=== PATIENT | male | born 1955 | race Caucasian/White ===

== ENCOUNTER 2021-12-25 07:53 | Outpatient (CLI) | payer MEDICARE, BC, SELFPAY ==
--- OUTSIDE RECORDS SUMMARY | 2021-12-25 07:59 | XMS_ITS | Clinical Summary ---
:1955 Author Organization [facility] [place] [address] Care Team Providers Name Role Phone Jeronimo Mason MD Primary Care Provider Allergies Active Allergy Reactions Severity Noted Date Comments Cat Dander Other - Describe In Comment Field High 019 Sneezing Medications Medication Sig Dispensed Refills Start Date End Date Status gabapentin Take 100 mg by mouth 0 Active (NEURONTIN) 100 mg at bedtime if needed capsule (sleep). diphenhydrAMINE-acet Take 1 Tablet by 0 Active aminophen 25-500 mg mouth at bedtime if (Tylenol PM Extra needed (sleep). Max Strength) 25-500 mg acetaminophen dose: tablet 4000mg in 24 hrs. acetaminophen Take 2 Tablets (650 50 Tablet 0 02/27/2021 Active (TYLENOL) 325 mg mg) by mouth every 6 tabletIndications: hours if needed Lumbar stenosis with (pain). Max neurogenic acetaminophen dose: claudication 4000mg in 24 hrs. oxyCODONE Take 1 Tablet (5 mg) 35 Tablet 0 02/27/2021 Active (ROXICODONE) 5 mg by mouth every 4 immediate release hours if needed for tabletIndications: Pain (pain). Lumbar stenosis with neurogenic claudication methocarbamoL Take 1 Tablet (750 30 Tablet 0 02/27/2021 Active (ROBAXIN) 750 mg mg) by mouth 3 times tabletIndications: daily. Lumbar stenosis with neurogenic claudication sennosides-docusate Take 1 Tablet by 50 Tablet 0 02/27/2021 Active (SENOKOT S) (8.6-50 mouth 2 times daily. mg) tabletIndications: Lumbar stenosis with neurogenic claudication WalkerIndications: Walker with front 1 Each 0 02/27/2021 Active Lumbar stenosis with wheels for home use. neurogenic claudication lisinopril-hydrochlo STOP using until 0 03/06/2021 Active rothiazide 20-12.5 your blood pressure mg tablet is persistently (PRINZIDE)Indication >130/90 or until s: HTN directed by your (hypertension) primary doctor Active Problems Problem Noted Date Lumbar stenosis with neurogenic claudication 2 Hyperlipidemia 02/26/2021 HTN (hypertension) 02/26/2021 Routine general medical examination at [facility] acility 12/21/2006 Immunizations Name Administration Dates Next Due Tdap 12/15/2006 Social History Tobacco Use Types Packs/Day Years Used Date Never Smoker Smokeless Tobacco: Never Used Tobacco Cessation: Counseling Given: Yes Alcohol Use Standard Drinks/Week Comments Not Currently 0 (1 standard drink = 0.6 oz pure 2-3 al coholic beverages per day alcohol) Alcohol Habits Answer Date Recorded How often do you have a drink Not asked containing alcohol? How many drinks containing alcohol do Not asked you have on a typical day when you are drinking? How often do you have six or more Not asked drinks on one occasion? Comment: 2-3 alcoholic beverages per day 02/22/19 Sex Assigned at Date Recorded Not on file Obstetrics History Last Filed Vital Signs Vital Sign Reading Time Taken Comments Blood Pressure 120/77 02/28/2021 8:38 AM CLIENT REPORTING ASSOCIATE Pulse 94 02/28/2021 8:38 AM CLIENT REPORTING ASSOCIATE Temperature 37.1 ??C (98.8 ??F) 02/28/2021 8:38 AM CLIENT REPORTING ASSOCIATE Respiratory Rate 16 02/28/2021 8:38 AM CLIENT REPORTING ASSOCIATE Oxygen Saturation 94% 02/28/2021 8:38 AM CLIENT REPORTING ASSOCIATE Inhaled Oxygen Concentration - - Weight 103.9 kg (229 lb) 02/26/2021 7:00 AM CLIENT REPORTING ASSOCIATE Height 172.7 cm (5' 8) 02/26/2021 7:00 AM CLIENT REPORTING ASSOCIATE Body Mass Index 34.82 02/26/2021 7:00 AM CLIENT REPORTING ASSOCIATE Plan of Treatment Health Maintenance Due Date Last Done Comments Depression screening for age 12+ 1968 BMI (ht and wt on same day) for age 0709/06/1974 18+ Hepatitis C screening for age 18-79 1974 Colonoscopy through age 75 2001 Lipids for age 45-75 2001 Zoster (shingles) series for age 50+ 2006 (1 of 2) Tetanus booster 12/15/2016 12/15/2006 COVID-19 vaccine series (4 - Booster 03/04/2021 01/07/2021, 05/22/2020, for Pfizer series) 05/01/2020 Pneumococcal series for age 65+ (1 - 2021 PCV) Influenza for age 65+ 10/10/2021 Tdap Completed 12/15/2006 Medical Devices Implanted Type Area Compensation Consulting Manager Device Shelf Model / Identifier Expiration Serial / Date Lot Bebeto Lmbr 60x5.5mm Tsrh 3d Cvd Titnm - [id number] Spine N/A: M edtronic [id number] / Implanted: Qty: 1 on 02/26/2021 by Shilo Strickland MD at [facility] Implants Spine Spine/Ortho / Plate Lmbr 5.5x1.125in Crosslink Low Profile Titnm - [id number] N/A: Medtronic [id number] / Implanted: Qty: 1 on 02/26/2021 by Shilo Strickland MD at [facility] Spine Spine/Ortho / Results Not on filefrom Last 3 Months Insurance Payer Benefit Plan / Subscriber ID Effective Dates Phone Addre ss Type Group WC WORKERS WC WORKERS [id number] Effective for [phone] [address] COMP COMP all dates 4 [place] [address] MEDICA MEDICA [id number] 2020-Presen [address] [place] [address] [phone] [id number] (Work) Mekhi Veloz Workers Comp Self 1955 [address] (Home) [place], [place] [phone] (Work) Advance Directives Latest Code Status on File Code Status Date Activated Date Inactivated Comments Full Code 02/26/2021 2:08 PM 02/28/2021 5:51 PM Code Status Discussion: Reviewed Preferences Care Teams Music Journalist Relationship Specialty Start Date End Date Jeronimo Mason MD PCP - General Internal Medicine 02/10/191999 [place] [address]
[2021-12-25 10:35] LABS: PSA Diagnostic* 3.87 ng/mL (0.10-4.00)
== END 2021-12-25 07:54 | disposition home or self-care (01) ==
LOC: NFLDREF 07:53
PROVIDERS: PCP Internal Medicine; Visit Provider Internal Medicine
DX: R97.20 Elevated prostate specific antigen [PSA] (principal)
CPT/HCPCS: 84153

== ENCOUNTER 2022-05-26 15:15 | Outpatient (CLI) | payer MEDICARE, BC, SELFPAY | END 2022-05-26 15:16 | disposition home or self-care (01) | LOC: NFLDREF 15:15 | PROVIDERS: PCP Internal Medicine; Referring Provider Internal Medicine; Visit Provider Internal Medicine | DX: R97.20 Elevated prostate specific antigen [PSA] (principal) | CPT/HCPCS: 84153 ==

== ENCOUNTER 2023-02-04 07:28 | Outpatient (CLI) | payer MEDICARE, BC, SELFPAY ==
--- OUTSIDE RECORDS SUMMARY | 2023-02-05 10:18 | XMS_ITS | Continuity of Care Document ---
Author Name Unknown Organization [facility] Address [address] [place] [address] Phone Care Team Providers Care Ladle Operator Name Role Phone Shilo Howe MD Unavailable Unavailable Allergies, Adverse Reactions, Alerts Substance Reaction Status Criticality cat dander Active No Information Medications Medication Instructions Dosage Effective Dates (start - stop) Status Comments TYLENOL PM EXTRA STRENGTH (unknown strength) Not Available - Active VIAGRA (unknown strength) Not Available - Active IBUPROFEN (unknown strength) Not Available - Active Procedures Procedure Date Office/Outpatient Visit,Est, Mod 2022 Postop Followup Visit Postop Followup Visit PSF, Lumbar - PA PSF - Additional Level(s) - PA Lami, Facetectomy/Foraminotomy, Lumbar ( Stenosis) Lami, Facetectomy/Foraminotomy - Additio nal Level(s) - PA Posterior Instrumentation, 3-6 Segments - PA PSF, Lumbar PSF - Additional Level(s) Posterior Instrumentation, 3-6 Segments Lami, Facetectomy/Foraminotomy, Lumbar ( Stenosis) Lami, Facetectomy/Foraminotomy - Additio nal Level(s) Autograft, From Same Incision Office/Outpatient Visit,Est, High Office/Outpatient Visit,New, Mod 2020 Office/Outpatient Visit,New, Mod 2016 Advance Directives Directive Yes / No Effective Date File Name No Information Encounters Encounter Description Practice Location Reason(s) For Visit Diagnoses Date Provider Providers Copied on Encounter Office/Outpa tient Visit,Est, Mod [facility], [address], [place], [place], [id number] , [place] [phone] [facility] Arthrodesis status 3 Carley Lao. [facility] [place], [address] [place] [address], [address], [id number], [place]. tel:[phone] Referring Provider: Tim Cagle, [address], [address]. tel:[phone] [facility], [address], [place], [place], [id number] , [place] tel:[phone] [facility] Encounter for other specified surgical aftercare 2 Carley Lao. [facility], [address] [place] [address], [address], [id number], [place]. tel:[phone] Referring Provider: Tim Cagle, [address], [address]. tel:[phone] [facility], [address], [place], [place], [id number] , [place] [phone] [facility] Encounter for other specified surgical aftercare 2 Carley Lao. [facility], [address] [place] [address], [address], [id number], [place]. tel:[phone] Referring Provider: Tim Cagle, [address], [address]. tel:[phone] [facility], [address], [place], [place], [id number] , [place] tel:[phone] [facility] No Information 2 No Information Referring Provider: Tim Cagle, [facility] & [address], [address]. tel:[phone] [facility], [address], [facility] [place], [id number] , [place] tel:[phone] [facility] No Information 2 Carley Lao. [facility] [place], [facility] [address] [place] [address], [address], [id number], [place]. tel:[phone] Referring Provider: Tim Cagle, [facility] & [address], [address]. tel:[phone] Office/Outpa tient Visit,Est, High [facility], [address], [facility] [place], [id number] , [place] tel:[phone] [facility] Spinal stenosis, lumbar region with neurogenic claudicationS pondylolisthe sis, lumbar region 1 Carley Lao. [facility] [place], [facility] [address] [place] [address], [address], [id number], [place]. tel:[phone] Referring Provider: Tim Cagle, [facility] & [address], [address]. tel:[phone] Office/Outpa tient Visit,New, Mod [facility], [address], [facility], [id number] , [place] tel: [phone] [facility] Spinal stenosis, lumbar region with neurogenic claudicationS star stenosis, cervical regionSpondyl olisthesis, lumbar region 1 No Information Referring Provider: Jeronimo Mason, [facility] [address] [place], [address]. tel:[phone] Office/Outpa tient Visit,New, Mod [facility], [address], [place], [id number] , [place] tel: [phone] [facility] Spinal stenosis, cervical region 7 Jose Martin Alicia. [facility] [place], [address] [place] [address], [id number], . tel:[phone] Referring Provider: Jeronimo Mason [facility] [address] [place] [address], [address]. tel:[phone] Family History Family Member Type Diagnosis Age At Onset No Information Payers Payer name Insurance type Covered libertarian ID Sarah medina(s) [facility] [id number] Medicare [facility] [id number] 1 Social History Type Description Quantity Date Captured Comments Alcohol Use Details Unknown Caffeine Use Details Unknown Tobacco Use Status No Information Smoking Status No Information Sex Male Vital Signs Date / Time: Height Weight BMI Pulse Rate Blood Pressure Temperature Respiratory Rate Body Surface Area Head Circumference Head Circ. Percentile Wt./Reyes. Percentile BMI percentile Pulse Ox Inhaled Ox 2:58 PM 67.75 in 99.337 kg (219.00 lbs) 33.5 4 kg/m eter (2) Chief Complaint And Reason For Visit No Information Reason For Referral Reason For Referral No Information History Of Present Illness Encounter Date Complaint History Of Prese nt Illness No Information Functional Status Date Functional Assessmen t No Information Instructions Date Instruction Additional Infor mation No Information Assessments Type Assessment Date assessment Arthrodesis status Patient Care Teams Name Effective Dates (start - stop) Status Members No Information
== END 2023-02-04 07:29 | disposition home or self-care (01) ==
LOC: NFLDREF 02-05 10:17
PROVIDERS: PCP Internal Medicine; Referring Provider Internal Medicine; Visit Provider Internal Medicine
DX: E78.5 Hyperlipidemia, unspecified (principal); I10 Essential (primary) hypertension; R97.20 Elevated prostate specific antigen [PSA]
CPT/HCPCS: 80053; 80061; 84153

== ENCOUNTER 2023-09-17 08:28 | Outpatient (CLI) | payer MEDICARE, BC, SELFPAY ==
--- OUTSIDE RECORDS SUMMARY | 2023-09-22 07:37 | XMS_ITS | Clinical Summary ---
Author Organization [employer] Address [place], [place] [address] Care Team Providers Care Body Hanger Name Role Phone Jeronimo Mason MD Primary Care Provider Allergies Active Allergy Reactions Criticality Noted Date Comments Cat Dander Other - Describe In Comment Field High Sneezing Medications Medication Sig Dispensed Refills Start Date End Date Status gabapentin (NEURONTIN) 100 mg capsule Take 100 mg by mouth at bedtime if needed (sleep). Active diphenhydrAMINE-almaz taminophen 25-500 mg (Tylenol PM Extra Strength) 25-500 mg tablet Take 1 Tablet by mouth at bedtime if needed (sleep). Max acetaminophen dose: 4000mg in 24 hrs. Active acetaminophen (TYLENOL) 325 mg tabletIndications:L umbar stenosis with neurogenic claudication Take 2 Tablets (650 mg) by mouth every 6 hours if needed (pain). Max acetaminophen dose: 4000mg in 24 hrs. 50 Tablet 02/27/2021 Active oxyCODONE (ROXICODONE) 5 mg immediate release tabletIndications:L umbar stenosis with neurogenic claudication Take 1 Tablet (5 mg) by mouth every 4 hours if needed for Pain (pain). 35 Tablet 02/27/2021 Active methocarbamoL (ROBAXIN) 750 mg tabletIndications:L umbar stenosis with neurogenic claudication Take 1 Tablet (750 mg) by mouth 3 times daily. 30 Tablet 02/27/2021 Active sennosides-docusate (SENOKOT S) (8.6-50 mg) tabletIndications:L umbar stenosis with neurogenic claudication Take 1 Tablet by mouth 2 times daily. 50 Tablet 02/27/2021 Active WalkerIndications:L umbar stenosis with neurogenic claudication Walker with front wheels for home use. 1 Each 02/27/2021 Active lisinopril-hydrochl orothiazide 20-12.5 mg tablet (PRINZIDE)Indicatio ns:HTN (hypertension) STOP using until your blood pressure is persistently >130/90 or until directed by your primary doctor 0 03/06/2021 Active Active Problems Problem Noted Date Diagnosed Date Lumbar stenosis with neurogenic claudication Hyperlipidemia 02/26/2021 HTN (hypertension) 02/26/2021 Routine general medical exam ination at a health care facility 12/21/2006 Immunizations Name Administration Dates Next Due Tdap 12/15/2006 Social History Tobacco Use Types Packs/Day Years Used Date Smoking Tobacco: Never Smokeless Tobacco: Never Tobacco Cessation:Counseling Given: Yes Alcohol Use Standard Drinks/Week Comments Not Currently 0 (1 standard drink = 0.6 oz pure alcohol) 2-3 alcoholic beverages per day Social Connections Answer Date Recorded Frequency of Communication with Friends and Fami ly Not on file 02/05/2021 Financial Resource Strain Answer Date R ecorded Difficulty of Paying Living Expenses Not on file 02/05/2021 Difficulty of Paying Living Expenses Not on file 02/05/2021 Sex and Gender Information Value Date Recorded Sex Assigned at Not on file Gender Identity Not on file Sexual Orientation Not on file Obstetrics History Last Filed Vital Signs Vital Sign Reading Time Taken Comments Blood Pressure 120/77 02/28/2021 8:38 AM PARTY PLAN SALES DIRECTOR Pulse 94 02/28/2021 8:38 AM PARTY PLAN SALES DIRECTOR Temperature 37.1 ??C (98.8 ??F) 02/28/2021 8:38 AM CS T Respiratory Rate 16 02/28/2021 8:38 AM PARTY PLAN SALES DIRECTOR Oxygen Saturation 94% 02/28/2021 8:38 AM PARTY PLAN SALES DIRECTOR Inhaled Oxygen Concentration - - Weight 103.9 kg (229 lb) 02/26/2021 7:00 AM PARTY PLAN SALES DIRECTOR Height 172.7 cm (5' 8) 02/26/2021 7:00 AM PARTY PLAN SALES DIRECTOR Body Mass Index 34.82 02/26/2021 7:00 AM PARTY PLAN SALES DIRECTOR Plan of Treatment Health Maintenance Due Date Last Done Comments Depression screening for age 12+ 1968 BMI (ht and wt on same day) for age 18+ 1974 Hepatitis C screening for age 18-79 1974 Colonoscopy through age 75 2001 Lipids for age 45-75 2001 Zoster (shingles) series for age 50+ (1 of 2) 2006 Tetanus booster 12/15/2016 12/15/2006 Pneumococcal series for age 65+ (1 of 1 - PCV) 2021 COVID-19 vaccine series ( season) 2022 01/07/2021, 05/22/2020, 05/01/2020 Influenza for age 65+ 10/11/2023 Tdap Completed 12/15/2006 Medical Devices Implanted Type Area Clerk Secretary Device Identifier Shelf Expiration Date Model / Serial / Lot Bebeto Lmbr 50x5.5mm Tsrh 3d Cvd Titnm - [id number] Implanted:Qty: 1 on 02/26/2021 by Shilo Howe MD at [facility] Spine Implants N/A: Spine Medtronic Spine/Ortho [id number] / / Bebeto Lmbr 60x5.5mm Tsrh 3d Cvd Titnm - [id number] Implanted:Qty: 1 on 02/26/2021 by Shilo Howe MD at [facility] Spine Implants N/A: Spine Medtronic Spine/Ortho [id number] / / Dura Neuro 1xin Duragen Plusnon-Sut - [id number] Implanted:Qty: 1 on 02/26/2021 by Shilo Howe MD at [facility] N/A: Spine Integra [employer] Farida 11/09/2023 [id number] / / [id number] Set Screw Lmbr Tsrh 3dx - [id number] Implanted:Qty: 5 on 02/26/2021 by Shilo Howe MD at [facility] N/A: Spine Medtronic Spine/Ortho [id number] / / Cnnctr Lmbr Sm Tsrh 3dx Offsettitnm - [id number] Implanted:Qty: 4 on 02/26/2021 by Shilo Howe MD at [facility] N/A: Spine Medtronic Spine/Ortho [id number] / / Cnnctr Lmbr Ts 3dx Offsettitnm - [id number] Implanted:Qty: 1 on 02/26/2021 by Shilo Howe MD at [facility] N/A: Spine Medtronic Spine/Ortho [id number] / / Screw Lmbr Post 6.5x45mm Tsrh 3dx Og Thin Va - [id number] Implanted:Qty: 5 on 02/26/2021 by Shilo Howe MD at [facility] N/A: Spine Medtronic Spine/Ortho [id number] / / Plate Lmbr 5.5x1.125in Crosslink Low Profile Titnm - [id number] Implanted:Qty: 1 on 02/26/2021 by Shilo Howe MD at [facility] N/A: Spine Medtronic Spine/Ortho [id number] / / Advance Directives * Full Code (Latest Code Status on File) Date Activated Date Inactivated Comments 02/26/2021 2:08 PM 02/28/2021 5:51 PM Question Answer Comments Code Status Discussion: Reviewed Preferences Care Teams Body Hanger Relationship Specialty Start Date End Date Jeronimo Mason MD [address] [place] [address] PCP - General Internal Medicine 02/10/19
--- OUTSIDE RECORDS SUMMARY | 2023-09-22 07:37 | XMS_ITS | Continuity of Care Document ---
Author Organization [facility] Address [address] [place] [address] Phone Care Team Providers Care Patent Paralegal Name Role Phone Shilo Howe MD Unavailable [...] Diagnoses Date Provider Providers Copied on Encounter [facility], [address], [place], [place], [id number] , [place] [phone] [facility] No Information 4 Carleyhumberto Lao. [facility] [place], [address], [address], [id number], [place]. tel:[phone] Office/Outpa tient Visit,Est, Mod [facility], [address], [place], [place], [id number] , [place] [phone] [facility] Arthrodesis status 3 Carley Shilo. [facility] [place], [address] [place] [address], [address], [id number], [place]. tel:[phone] Referring Provider: Tim Cagle, [address], [address]. tel:[phone] [facility], [address], [place], [place], [id number] , [place] tel:[phone] [facility] Encounter for other specified surgical aftercare [address] [facility], [address] [place] [address], [address], [id number], [place]. tel:[phone] Referring Provider: Tim Cagle, [address], [address]. tel:[phone] [facility], [address], [place], [id number] , [place] tel:[phone] [facility] Encounter for other specified surgical aftercare - 2 Carley Ramirezothy. [facility] [place], [address], [address], [id number], [place]. tel:[phone] Referring Provider: Tim Cagle, [facility] & [address], [address]. tel:[phone] [facility], [address], [place], [id number] , [place] tel:[phone] [facility] No Information 2 No Information Referring Provider: Tim Cagle, [facility] & [address], [address]. tel:[phone] [facility], [address], [place], [place], [id number] , [place] tel:[phone] [facility] No Information 2 Carley Lao. [facility] [place], [address] [place] [address], [address], [id number], [place]. tel:[phone] [facility]: [facility] & [address], [address]. tel:[phone] Office/Outpa tient Visit,Est, High [facility], [address] [place] [id number] , [place] [phone] [facility] Spinal stenosis, lumbar region with neurogenic claudicationS pondylolisthe sis, lumbar region 1 Carley Lao. [facility] [place], [address] [place] [address], [address], [id number], [place]. tel:[phone] Referring Provider: Tim Cagle, [facility] & [address], [address]. tel:[phone] Office/Outpa tient Visit,New, Mod [facility], [address], [place], [id number] , [place] [phone] [facility] Spinal stenosis, lumbar region with neurogenic claudicationS star stenosis, cervical regionSpondyl olisthesis, lumbar region 1 No Information Referring Provider: Jeronimo Mason, [facility] [address] [place] [address], [address]. tel:[phone] Office/Outpa tient Visit,New, Mod [facility], [address], [place], [place], [id number] , [place] tel:[phone] [facility] Spinal stenosis, cervical region 7 Jose Martin Alicia. [facility], [address], [place], [place], [id number], [place]. tel:[phone] Referring [facility]: [facility] And [address], [address]. tel:[phone] Family History Family Member Type Diagnosis Age At Onset No Information Payers Payer name Insurance type Covered alliance party ID Sarah medina(s) [facility] [id number] Medicare [facility] [id number] 1 Social History Type Description Quantity Date Captured Comments Sex Male Smoking Status No Information Chief Complaint And Reason For Visit No Information Reason For Referral Reason For Referral No Information History Of Present Illness Encounter Date Complaint History Of Prese nt Illness No Information Functional Status Date Functional Assessmen t No Information Instructions Date Instruction Additional Infor mation No Information Assessments Type Assessment Date No Information Patient Care Teams Name Effective Dates (start - stop) Status Members No Information
== END 2023-09-17 08:29 | disposition home or self-care (01) ==
LOC: NFLDREF 09-22 07:35
PROVIDERS: PCP Internal Medicine; Referring Provider Internal Medicine; Visit Provider Internal Medicine
DX: R97.20 Elevated prostate specific antigen [PSA] (principal); Z12.5 Encounter for screening for malignant neoplasm of prostate
CPT/HCPCS: G0103

== ENCOUNTER 2023-10-11 21:55 | Outpatient (CLI) | payer MEDICARE, BC, SELFPAY ==
--- OUTSIDE RECORDS SUMMARY | 2023-10-13 00:39 | XMS_ITS | Clinical Summary ---
Author Organization [employer] [facility] Address [place], [place] [address] Care Team Providers Care Paste Mixer Liquid Name Role Phone Jeronimo Mason MD Primary Care Provider Allergies Active Allergy Reactions Criticality Noted Date Comments Cat Dander Other - Describe In Comment Field High Sneezing Medications Medication Sig Dispensed Refills Start Date End Date Status gabapentin (NEURONTIN) 100 mg capsule Take 100 mg by mouth at bedtime if needed (sleep). Active diphenhydrAMINE-alamz taminophen 25-500 mg (Tylenol PM Extra Strength) [...] Comments Blood Pressure 120/77 02/28/2021 8:38 AM INTEGRATED LOGISTICS PROGRAMS DIRECTOR Pulse 94 02/28/2021 8:38 AM INTEGRATED LOGISTICS PROGRAMS DIRECTOR Temperature 37.1 ??C (98.8 ??F) 02/28/2021 8:38 AM CS T Respiratory Rate 16 02/28/2021 8:38 AM INTEGRATED LOGISTICS PROGRAMS DIRECTOR Oxygen Saturation 94% 02/28/2021 8:38 AM INTEGRATED LOGISTICS PROGRAMS DIRECTOR Inhaled Oxygen Concentration - - Weight 103.9 kg (229 lb) 02/26/2021 7:00 AM INTEGRATED LOGISTICS PROGRAMS DIRECTOR Height 172.7 cm (5' 8) 02/26/2021 7:00 AM INTEGRATED LOGISTICS PROGRAMS DIRECTOR Body Mass Index 34.82 02/26/2021 7:00 AM INTEGRATED LOGISTICS PROGRAMS DIRECTOR Plan of Treatment Health Maintenance [...] Completed 12/15/2006 Medical Devices Implanted Type Area Instrument Repairer Helper Device Identifier Shelf Expiration Date Model / Serial / Lot Bebeto Lmbr 50x5.5mm Tsrh 3d Cvd Titnm - [id number] Implanted:Qty: 1 on 02/26/2021 by Shilo Howe MD at [facility] Spine Implants N/A: Spine Medtronic Spine/Ortho [id number] / / Bebeto Lmbr 60x5.5mm Tsrh 3d Cvd Titnm - [id number] Implanted:Qty: 1 on 02/26/2021 by Shilo Howe MD at [facility] Spine Implants N/A: Spine Medtronic Spine/Ortho [id number] / / Dura Neuro 1xin Duragen Plusnon-Sut - [id number] Implanted:Qty: 1 on 02/26/2021 by Shilo Howe MD at [facility] N/A: Spine Integra [employer] Farida 11/09/2023 DP-1011 / / [id number] Set Screw Lmbr Tsrh 3dx - [id number] Implanted:Qty: 5 on 02/26/2021 by Shilo Howe MD at [facility] N/A: Spine Medtronic Spine/Ortho [id number] / / Cnnctr Lmbr Sm Tsrh 3dx Offsettitnm - [id number] Implanted:Qty: 4 on 02/26/2021 by Shilo Howe MD at [facility] N/A: Spine Medtronic Spine/Ortho [id number] / / Cnnctr Lmbr Ts 3dx Offsettitnm - [id number] Implanted:Qty: 1 on 02/26/2021 by Shilo Howe MD at [facility] N/A: Spine Medtronic Spine/Ortho [id number] / / Screw Lmbr Post 6.5x45mm Tsrh 3dx Og Thin Va - [id number] Implanted:Qty: 5 on 02/26/2021 by Shilo Howe MD at [facility] N/A: Spine Medtronic Spine/Ortho [id number] / / Plate Lmbr 5.5x1.125in Crosslink Low Profile Titnm - [id number] Implanted:Qty: 1 on 02/26/2021 by Shilo Howe MD at [facility] N/A: Spine Medtronic Spine/Ortho [id number] / / Advance Directives * Full Code (Latest Code Status on File) Date Activated Date Inactivated Comments 02/26/2021 2:08 PM 02/28/2021 5:51 PM Question Answer Comments Code Status Discussion: Reviewed Preferences Care Teams Paste Mixer Liquid Relationship Specialty Start Date End Date Jeronimo Mason MD [address] [place] [address] PCP - General Internal Medicine 02/10/19
--- OUTSIDE RECORDS SUMMARY | 2023-10-13 00:39 | XMS_ITS | Continuity of Care Document ---
Author Organization [facility] Address [address] [place] [address] Phone Care Team Providers Care Budget Accountant Name Role Phone Shilo Howe MD Unavailable [...] [place], [address], [place], [place], [id number] , [place] [phone] [facility] No Information 4 Carleyhumberto Lao. [facility] [place], [address], [address], [id number], [place]. tel:[phone] Office/Outpa tient Visit,Est, Mod [facility], [address], [place], [place], [id number] , [place] [phone] [facility] Arthrodesis status 3 Carley Shilo. [facility] [place], [address] [place] [address], [address], [id number], [place]. tel:[phone] Referring Provider: Tim Cagle, [address], [address]. tel:[phone] [facility], [address], [place], [place], [id number] , [place] tel:[phone] [facility] Encounter for other specified surgical aftercare 2 Carley Ramirezothy. [facility], [address] [place] [address], [address], [id number], [place]. tel:[phone] Referring Provider: Tim Cagle, [address], [address]. tel:[phone] [facility], [address], [place], [place], [id number] , [place] tel:[phone] [facility] Encounter for other specified surgical aftercare - 2 Carley Ramirezothy. [facility] [place], [address], [address], [id number], [place]. tel:[phone] Referring Provider: Tim Cagle, [facility] & [address], [address]. tel:[phone] [facility], [address], [place], [place], [id number] , [place] tel:[phone] [facility] No Information 2 No Information Referring Provider: Tim Cagle, [facility] & [address], [address]. tel:[phone] [facility], [address], [place], [id number] , [place] tel:[phone] [facility] No Information 2 Carley Lao. [facility] [place], [address] [place] [address], [address], [id number], [place]. tel:[phone] Referring [facility]: [facility] & [address], [address]. tel:[phone] Office/Outpa tient Visit,Est, High [facility], [address] [place] [id number] , [place] [phone] [facility] Spinal stenosis, lumbar region with neurogenic claudicationS pondylolisthe sis, lumbar region 1 Carley Lao. [facility] [place], [address] [place] [address], [address], [id number], [place]. tel:[phone] Referring Provider: Tim Cagle, [facility] & [address], [address]. tel:[phone] Office/Outpa tient Visit,New, Mod [facility], [address], [place], [place], [id number] , [place] [phone] [facility] Spinal stenosis, lumbar region with neurogenic claudicationS star stenosis, cervical regionSpondyl olisthesis, lumbar region 1 No Information Referring Provider: Jeronimo Mason, [facility] [address] [place] [address], [address]. tel:[phone] Office/Outpa tient Visit,New, Mod [facility], [address], [place], [place], [id number] , [place] tel:[phone] [facility] Spinal stenosis, cervical region 7 Jose Martin Alicia. [facility], [address], [place], [place], [id number], [place]. tel:[phone] Referring Provider: [facility] And [address], [address]. tel:[phone] Family History Family Member Type Diagnosis Age At Onset No Information Payers Payer name Insurance type Covered alliance party ID Sarah medina(s) [facility] [id number] Medicare [facility] BL [id number] 1 Social History Type Description Quantity Date [...]
== END 2023-10-11 21:56 | disposition home or self-care (01) ==
LOC: AMB 10-13 00:36
PROVIDERS: PCP Internal Medicine; Visit Provider Family Medicine
DX: R55 Syncope and collapse (principal); R41.82 Altered mental status, unspecified
CPT/HCPCS: A0425; A0427

== ENCOUNTER 2023-10-11 22:24 | Emergency (ER) | payer MEDICARE, BC, SELFPAY ==
[2023-10-11] VITALS (12 sets, daily range): BP systolic 94–114; BP diastolic 64–81; PULSE 86–89; RESP 16; TEMP 36.8; O2SAT 85–98; BMI 33.2
--- NOTE | 2023-10-11 22:28 | CRLHL7_ITS ---
For Patients: As a result of the Century Cures Act, medical imaging exams and procedure reports are released immediately into your electronic medical record. You may view this report before your referring provider. If you have questions, please contact your health care provider. INDICATION: Unwitnessed fall. TECHNIQUE: CT head without contrast. COMPARISON: None. FINDINGS: Detailed evaluation is limited by patient motion. Within these limits: CSF spaces: Within normal limits for age. Brain parenchyma and extra-axial spaces: Mild periventricular white matter hypoattenuation suggestive of chronic microvascular disease. No sign of mass, hemorrhage, or midline shift. No extra-axial fluid collection. Skull base and calvarium: Complete opacification of the left frontal sinus. Mild opacification of the right maxillary sinus. Mastoids are clear. The visualized orbits are grossly unremarkable. No skull fractures. IMPRESSION: No acute intracranial abnormality. No acute fracture or dislocation.. Please note that all CT scans at this facility use dose modulation, iterative reconstruction, and/or weight-based dosing when appropriate to reduce radiation dose to as low as reasonably achievable. Dictated by Jimmy Cha MD @ 10/11/2023 11:37:34 PM (Electronically Signed)
--- NOTE | 2023-10-11 22:28 | CRLHL7_ITS ---
For Patients: As a result of the Century Cures Act, medical imaging exams and procedure reports are released immediately into your electronic medical record. You may view this report before your referring provider. If you have questions, please contact your health care provider. INDICATION: Unwitnessed fall. TECHNIQUE: CT cervical spine without contrast. COMPARISON: MR C-spine from 12/06/2020. FINDINGS: Vertebrae: Alignment is unremarkable. There are no fractures or suspicious bony lesions. Discs and facet joints: Multilevel spinal degenerative changes. Extraspinal findings: Prevertebral soft tissues, visualized airway, and visualized lungs are unremarkable. IMPRESSION: No acute fracture or dislocation. Please note that all CT scans at this facility use dose modulation, iterative reconstruction, and/or weight-based dosing when appropriate to reduce radiation dose to as low as reasonably achievable. Dictated by Jimmy Cha MD @ 10/11/2023 11:30:22 PM (Electronically Signed)
--- NOTE | 2023-10-11 22:29 | ED_ITS ---
HPI - General Adult General Time Seen by Provider: 22:25 <Natalya Srivastava MD - Last Filed: 10/12/23 01:50> Date Seen: 10/11/23 <Natalya Srivastava MD - Last Filed: 10/12/23 01:50> Chief complaint: Fall/Minor Trauma <Natalya Srivastava MD - Last Filed: 10/12/23 01:50> Stated complaint: etoh, fall <Natalya Srivastava MD - Last Filed: 10/12/23 01:50> Time Seen by Provider: 10/11/23 22:29 <Natalya Srivastava MD - Last Filed: 10/12/23 01:50> Source: patient, EMS and RN notes reviewed <Natalya Srivastava MD - Last Filed: 10/12/23 01:50> Mode of arrival: EMS <Natalya Srivastava MD - Last Filed: 10/12/23 01:50> Limitations: altered mental status <Natalya Srivastava MD - Last Filed: 10/12/23 01:50> History of Present Illness HPI narrative: Mirta is a 68-year-old gentleman with history of hypertension, hyperlipidemia, alcohol use today who is brought in by EMS for evaluation after a fall with altered GCS. The patient initially brought into room 5 where I do see him and immediately called TTA and we do take him over to CT for imaging. According to EMS mirta is been drinking all day. He was in the bathroom and family heard him fall. He was unresponsive initially. Upon EMS arrival he had a GCS of 13. At 1 point EMS feels like mirta was making fist with his hand and was going to hit somebody but they were able to verbally deescalate the situation. Mirta is able to tell me his name. He denies any pain at this time. He is clearly intoxicated and altered. He is asking where his is. <Natalya Srivastava MD - Last Filed: 10/12/23 01:50> Related Data Home medications: Previous Rx's ?Medication ?Instructions ?Recorded tadalafil 5 mg tablet (Cialis) 5 mg PO QDAY PRN sexual activity 02/10/23 #30 tabs lisinopril 20 1 tab PO QDAY #90 tabs 07/27/23 mg-hydrochlorothiazide 12.5 mg tablet <Natalya Srivastava MD - Last Filed: 10/12/23 01:50> Allergies/adverse reactions: Allergies Allergy/AdvReac Type Severity Reaction Status Date / Time Cat hair extract Allergy Intermediate Sneezing Uncoded 02/10/23 16:10 <Natalya Srivastava MD - Last Filed: 10/12/23 01:50> Review of Systems Status of ROS: Reports: unobtainable due to mental status <Natalya Srivastava MD - Last Filed: 10/12/23 01:50> [facility] Medical History: Medical History Healthcare maintenance ?Z00.00 - Encounter for general adult medical examination without abnormal fi ndings (ICD-10) Erectile dysfunction ?N52.9 - Male erectile dysfunction, unspecified (ICD-10) Neuropathy ?G62.9 - Polyneuropathy, unspecified (ICD-10) Left shoulder pain ?M25.512 - Pain in left shoulder (ICD-10) Trigger finger ?M65.30 - Trigger finger, unspecified finger (ICD-10) <Natalya Srivastava MD - Last Filed: 10/12/23 01:50> Surgical History: Surgical History History of ankle surgery ?Z98.890 - Other specified postprocedural states (ICD-10) History of carpal tunnel surgery of right wrist (09/08/14) ?Z98.890 - Other specified postprocedural states (ICD-10) Status post lumbar spinal fusion (02/2021) ?Z98.1 - Arthrodesis status (ICD-10) <Natalya Srivastava MD - Last Filed: 10/12/23 01:50> Family History: Family History Mother Dementia Father Coronary artery disease <Natalya Srivastava MD - Last Filed: 10/12/23 01:50> Social History: Social History Narrative: and Retired What is your current living situation?: I presently have a place to live Problems where you live: declined to answer In the past 12 months, utilities in danger of being shut off: no In past 12 months, lack of transportation kept you from medical appts, meetings, work, or getting things needed for daily living: no In the past 12 mos, have been you worried that your food would run out before you had money to buy more?: never true In the past 12 mos, the food you bought just didn't last and you didn't have money to buy more?: never true Smoking Status: Never smoker How often does anyone, including family, friends and others, physically hurt you : never How often does anyone, including family, friends and others, insult or talk down to you: never How often does anyone, including family, friends and others, threaten you with harm: never How often does anyone, including family, friends and others, scream or curse at you: never Feeling down, depressed, or hopeless: several days <Natalya Srivastava MD - Last Filed: 10/12/23 01:50> Exam Narrative: Exam Narrative: Mirta is awake and alert. GCS at 14 at this time. Airway-open Breathing-easy Circulation-no evidence of bleeding at this time Disability-no deformities noted. Pupils are reactive but sluggishly so. Face symmetrical. He is moving his neck without difficulty. Heart with regular rate and rhythm and lungs are clear bilaterally. Abdomen is soft nontender. Lower extremities without edema. He is moving all the extremities. We immediately go to CT for imaging of the head and the neck. <Natalya Srivastava MD - Last Filed: 10/12/23 01:50> Const: Vital Signs, click to edit/add: Vital Signs - 24 hr 10/11/23 22:30 10/11/23 23:08 10/11/23 23:12 Temperature 98.2 F Pulse Rate 88 Pulse Rate [Pulse Oximeter] 87 Respiratory Rate 16 Blood Pressure 104/67 Blood Pressure [Ri ght Upper Arm] 114/75 Pulse Oximetry 97 93 Oxygen Delivery Me thod Room Air 10/11/23 23:15 10/11/23 23:21 10/11/23 23:30 Temperature Pulse Rate 86 87 Pulse Rate [Pulse Oximeter] Respiratory Rate Blood Pressure 94/66 Blood Pressure [Ri ght Upper Arm] Pulse Oximetry 95 95 Oxygen Delivery Me thod 10/11/23 23:32 10/11/23 23:33 10/11/23 23:42 Temperature Pulse Rate 88 89 Pulse Rate [Pulse Oximeter] Respiratory Rate Blood Pressure 98/64 107/81 Blood Pressure [Ri ght Upper Arm] Pulse Oximetry 92 94 85 L Oxygen Delivery Me thod 10/11/23 23:45 10/11/23 23:52 10/11/23 23:53 Temperature Pulse Rate 88 87 89 Pulse Rate [Pulse Oximeter] Respiratory Rate Blood Pressure 98/71 Blood Pressure [Ri ght Upper Arm] Pulse Oximetry 95 96 98 Oxygen Delivery Me thod 10/12/23 00:00 10/12/23 00:05 10/12/23 00:05 Temperature Pulse Rate 90 90 90 Pulse Rate [Pulse Oximeter] Respiratory Rate Blood Pressure Blood Pressure [Ri ght Upper Arm] Pulse Oximetry 97 95 95 Oxygen Delivery Me thod 10/12/23 00:05 10/12/23 00:05 10/12/23 00:15 Temperature Pulse Rate 90 90 89 Pulse Rate [Pulse Oximeter] Respiratory Rate Blood Pressure Blood Pressure [Ri ght Upper Arm] Pulse Oximetry 95 95 94 Oxygen Delivery Me thod 10/12/23 00:30 10/12/23 07:25 Temperature Pulse Rate 87 Pulse Rate [Pulse Oximeter] 94 Respiratory Rate 16 Blood Pressure Blood Pressure [Ri ght Upper Arm] 116/83 Pulse Oximetry 93 96 Oxygen Delivery Me thod Room Air <Natalya Srivastava MD - Last Filed: 10/12/23 01:50> Vital Signs, click to edit/add: Vital Signs - 24 hr 10/11/23 22:30 10/11/23 23:08 10/11/23 23:12 Temperature 98.2 F Pulse Rate 88 Pulse Rate [Pulse Oximeter] 87 Respiratory Rate 16 Blood Pressure 104/67 Blood Pressure [Ri ght Upper Arm] 114/75 Pulse Oximetry 97 93 Oxygen Delivery Me thod Room Air 10/11/23 23:15 10/11/23 23:21 10/11/23 23:30 Temperature Pulse Rate 86 87 Pulse Rate [Pulse Oximeter] Respiratory Rate Blood Pressure 94/66 Blood Pressure [Ri ght Upper Arm] Pulse Oximetry 95 95 Oxygen Delivery Me thod 10/11/23 23:32 10/11/23 23:33 10/11/23 23:42 Temperature Pulse Rate 88 89 Pulse Rate [Pulse Oximeter] Respiratory Rate Blood Pressure 98/64 107/81 Blood Pressure [Ri ght Upper Arm] Pulse Oximetry 92 94 85 L Oxygen Delivery Me thod 10/11/23 23:45 10/11/23 23:52 10/11/23 23:53 Temperature Pulse Rate 88 87 89 Pulse Rate [Pulse Oximeter] Respiratory Rate Blood Pressure 98/71 Blood Pressure [Ri ght Upper Arm] Pulse Oximetry 95 96 98 Oxygen Delivery Me thod 10/12/23 00:00 10/12/23 00:05 10/12/23 00:05 Temperature Pulse Rate 90 90 90 Pulse Rate [Pulse Oximeter] Respiratory Rate Blood Pressure Blood Pressure [Ri ght Upper Arm] Pulse Oximetry 97 95 95 Oxygen Delivery Me thod 10/12/23 00:05 10/12/23 00:05 10/12/23 00:15 Temperature Pulse Rate 90 90 89 Pulse Rate [Pulse Oximeter] Respiratory Rate Blood Pressure Blood Pressure [Ri ght Upper Arm] Pulse Oximetry 95 95 94 Oxygen Delivery Me thod 10/12/23 00:30 10/12/23 07:25 Temperature Pulse Rate 87 Pulse Rate [Pulse Oximeter] 94 Respiratory Rate 16 Blood Pressure Blood Pressure [Ri ght Upper Arm] 116/83 Pulse Oximetry 93 96 Oxygen Delivery Me thod Room Air <Jeronimo Mason MD - Last Filed: 10/12/23 11:24> Documenting provider has reviewed patient's vital signs: yes <Natalya Srivastava MD - Last Filed: 10/12/23 01:50> Course Course ED Course: At this time mirta is clearly intoxicated, I do have story from EMS but Mirta is unable to provide any other history. Will attempt to talk to his family. In the meantime head neck CT a been ordered. Will also obtain CBC, comprehensive panel, alcohol, salicylates, acetaminophen, drug screen, urinalysis. Plan on 1 L of normal saline as well as banana bag. At this time he has been cooperative. <Natalya Srivastava MD - Last Filed: 10/12/23 01:50> Reevaluation(s) Reevaluation #1: Veronica Ekta and other family members now present. We were able to ascertain that Mirta did not lose consciousness. Initially that is what dispatched told EMS but they did not note that. However they did give an initial GCS of 13. Alcohol level elevated at 0.33. Salicylates and acetaminophen are negative. Magnesium is 2.1. Cbc reassuring. As is the comprehensive panel. Patient continues to deny pain. He is cooperative. He still has significant slurred speech. He is drinking water without difficulty. Drug screen positive for opiates. <Natalya Srivastava MD - Last Filed: 10/12/23 01:50> Reevaluation #2: I did speak with Mirta's family members in the lobby. They are very concerned and states that he has episodes of alcohol bingeing. His thinks that perhaps he is dealing with depression and try to address it with his primary MD approximately 18 months ago. They would like Mirta to go to detox and an inpatient treatment. They feel like this is been going on for quite some time. They do not know that he has never gone through withdrawal and there have been no alcohol related seizures to their knowledge. I do explain that Mirta has not done anything that would require a 72 hour hold and I concern not make him go to treatment although I highly recommended it. In speaking with Mirta's family members, he does occasionally makes statements such as things would be better off without him here. However, he has no specific plan nor has he made any specific statements regarding suicidal ideation. <Natalya Srivastava MD - Last Filed: 10/12/23 01:50> Reevaluation #3: I was able to speak 2 mirta and his family. I expressed my concern about alcohol level of 0.33 and the amount of drinking that 1 needs to do on a daily basis in order to get to that level and still be conscious. We do repeatedly talked about the possibility of detox but he does not feel he needs to go as he states that he is able to quit for up to a week and a half with no problems. That being said, he does agree to remain in the ED overnight for monitoring. Family does not feel safe taking him home. He did receive 1 L of normal saline as well as a banana bag. At this time he agrees to stay for monitoring. We also spoke about treatment. Family would like him to go with inpatient treatment. Mirta is not so convinced this is the way to go. They do impress upon him that alcohol has become such a problem that they want him to be completely abstinent for the rest of his life. He agrees with this. <Natalya Srivastava MD - Last Filed: 10/12/23 01:50> Additional Reevaluation(s): Patient seen and evaluated. Patient has a personal patient of mine and will be discharged home and will arrange for inpatient treatment starting tomorrow. He has my cell phone number and will be in contact 1st thing in the morning will make arrangements. <Jeronimo Mason MD - Last Filed: 10/12/23 11:24> Vital Signs Vital signs: Initial Vital Signs Temperature 98.2 F 10/11/23 22:30 Temperature Source Temporal Artery Scan 10/11/23 22:30 Pulse Rate 87 10/11/23 22:30 Respiratory Rate 16 10/11/23 22:30 Blood Pressure 114/75 10/11/23 22:30 Blood Pressure Mean 88 10/11/23 22:30 Blood Pressure Position Semi-Fowlers 10/11/23 22:30 Pulse Oximetry 97 10/11/23 22:30 Oxygen Delivery Method Room Air 10/11/23 22:30 Vital Signs Temperature 98.2 F 10/11/23 22:30 Pulse Rate 87 10/11/23 22:30 Respiratory Rate 16 10/11/23 22:30 Blood Pressure 114/75 10/11/23 22:30 Pulse Oximetry 97 10/11/23 22:30 Oxygen Delivery Method Room Air 10/11/23 22:30 Temperature 98.2 F 10/11/23 22:30 Pulse Rate 94 10/12/23 07:25 Respiratory Rate 16 10/12/23 07:25 Blood Pressure 116/83 10/12/23 07:25 Pulse Oximetry 96 10/12/23 07:25 Oxygen Delivery Method Room Air 10/12/23 07:25 <Natalya Srivastava MD - Last Filed: 10/12/23 01:50> Initial Vital Signs Temperature 98.2 F 10/11/23 22:30 Temperature Source Temporal Artery Scan 10/11/23 22:30 Pulse Rate 87 10/11/23 22:30 Respiratory Rate 16 10/11/23 22:30 Blood Pressure 114/75 10/11/23 22:30 Blood Pressure Mean 88 10/11/23 22:30 Blood Pressure Position Semi-Fowlers 10/11/23 22:30 Pulse Oximetry 97 10/11/23 22:30 Oxygen Delivery Method Room Air 10/11/23 22:30 Vital Signs Temperature 98.2 F 10/11/23 22:30 Pulse Rate 87 10/11/23 22:30 Respiratory Rate 16 10/11/23 22:30 Blood Pressure 114/75 10/11/23 22:30 Pulse Oximetry 97 10/11/23 22:30 Oxygen Delivery Method Room Air 10/11/23 22:30 Temperature 98.2 F 10/11/23 22:30 Pulse Rate 94 10/12/23 07:25 Respiratory Rate 16 10/12/23 07:25 Blood Pressure 116/83 10/12/23 07:25 Pulse Oximetry 96 10/12/23 07:25 Oxygen Delivery Method Room Air 10/12/23 07:25 <Jeronimo Mason MD - Last Filed: 10/12/23 11:24> Medications Administered Medications: Discontinued Medications Generic Name Dose Route Start Last Admin Trade Name Freq PRN Reason Stop Dose Admin Sodium Chloride 1,000 mls @ 1,000 mls/hr 10/11/23 22:28 10/12/23 01:50 0.9 % Sodium Chloride 1000 Ml IV 10/11/23 23:27 Infused .Q1H ANAYELI Infusion Folic Acid 1 mg/ Multivitamins 1,011.2 mls @ 252.8 mls/hr 10/11/23 22:29 10/12/23 01:50 10 ml/ Thiamine HCl 100 mg/ IV 10/12/23 02:28 Infused Sodium Chloride .Q4H ANAYELI Infusion <Natalya Srivastava MD - Last Filed: 10/12/23 01:50> Discontinued Medications Generic Name Dose Route Start Last Admin Trade Name Freq PRN Reason Stop Dose Admin Sodium Chloride 1,000 mls @ 1,000 mls/hr 10/11/23 22:28 10/12/23 01:50 0.9 % Sodium Chloride 1000 Ml IV 10/11/23 23:27 Infused .Q1H ANAYELI Infusion Folic Acid 1 mg/ Multivitamins 1,011.2 mls @ 252.8 mls/hr 10/11/23 22:29 10/12/23 01:50 10 ml/ Thiamine HCl 100 mg/ IV 10/12/23 02:28 Infused Sodium Chloride .Q4H ANAYELI Infusion <Jeronimo Mason MD - Last Filed: 10/12/23 11:24> Medical Decision Making MDM Narrative Medical decision making narrative: 1. Alcohol intoxication-alcohol level 0.33. I was very surprised that his LFTs were within normal limits. Patient has had 1 prior injury alcohol related in 2004 where he was seen in the ED. he is denying daily alcohol use and states he is able to quit up for a week and a half at times. His family describes frequent bingeing. He has declined detox but does agree to remain in the ED. He received normal saline bolus as well as a banana bag. We will feed him a meal and then would expect him to sleep the rest of the night. Family will return in the morning. At that time will revisit the need for treatment. They are afraid that he will not remember this conversation as he is still intoxicated. Will check with social work assistant in regards to phone [place] potential [place], inpatient treatment centers as well as outpatient options. 2. Fall-at this time patient has a reassuring head and cervical spine CT. No evidence of external injury. 3. Abnormal drug test-patient has tested positive for opiates. He is adamant that he does not take any opiates. States he takes Tylenol with Benadryl in the morning. No known opioids in the home. Pupils are reactive and are not pinpoint. 4. Disposition-at this time patient will remain in the ED overnight for monitoring. Tomorrow morning requested revisiting the need for treatment with the patient and his family when they return. <Natalya Srivastava MD - Last Filed: 10/12/23 01:50> Medical Records Medical records reviewed: Yes I reviewed the patient's medical records <Natalya Srivastava MD - Last Filed: 10/12/23 01:50> Lab Data Lab results reviewed: Yes I reviewed the patient's lab results <Natalya Srivastava MD - Last Filed: 10/12/23 01:50> Labs: Lab Results 10/11/23 10/12/23 Range/Units 22:50 00:00 WBC 10.82 (4.50-11.00) K/uL RBC 4.53 (4.30-5.90) m/uL Hgb 14.3 (13.5-17.5) gm/dL Hct 42.6 (37.0-53.0) % MCV 94 (80-100) fL MCH 32 (26-34) pg MCHC 34 (32-36) gm/dL RDW Coeff of Francis 13.2 (11.5-15.5) % Plt Count 248 (140-440) K/uL Neut % (Auto) 74.7 H (42.0-72.0) % Lymph % (Auto) 17.4 L (20-44) % [place] % (Auto) 4.4 (0.0-11.0) % Eos % (Auto) 2.4 (0.0-7.0) % Baso % (Auto) 0.3 (0.0-3.0) % Neut # (Auto) 8.10 H (1.7-7.0) K/uL Lymph # (Auto) 1.90 (0.90-2.90) K/uL [place] # (Auto) 0.50 (0.00-0.90) K/UL Eos # (Auto) 0.26 (0.00-0.50) K/uL Baso # (Auto) 0.03 (0.00-0.30) K/uL Abs Immat Gran (auto) 0.09 (0.00-0.30) K/uL Imm/Tot Granulo (auto) 0.8 % Sodium 141 (135-149) mmol/L Potassium 4.0 (3.6-5.1) mmol/L Chloride 109 (96-114) mmol/L Carbon Dioxide 21 (20-32) mmol/L Anion Gap 11 (7-15) mEq/L BUN 12 (7-30) mg/dL Creatinine 0.8 (0.5-1.5) mg/dL Estimated Creat Clear 71.68 Estimated GFR 97 ml/min Glucose 100 (60-115) mg/dL Calcium 8.4 (8.4-10.6) mg/dL Magnesium 2.1 (1.5-2.6) mg/dL Total Bilirubin 0.2 (0.1-1.5) mg/dL AST 27 (12-35) U/L ALT 19 (4-50) U/L Alkaline Phosphatase 62 (40-150) U/L C-Reactive Protein < 0.5 L (0.5-1.0) mg/dL Total Protein 6.6 (6.0-8.3) g/dL Albumin 4.3 (3.3-5.0) g/dL Urine Color Yellow (Yellow) Urine Appearance Clear (Clear) Urine pH 5.5 (5.0-8.5) Ur Specific [place] 1.015 (1.000-1.030) Urine Protein Negative (Negative) Urine Glucose (UA) Negative (Negative) Urine Ketones Negative (Negative) Urine Blood Negative (Negative) Urine Nitrite Negative (Negative) Urine Bilirubin Negative (Negative) Urine Urobilinogen 0.2 (0.2-1.0) Ur Leukocyte Esterase Negative (Negative) Urine RBC 0-2 (0-2) Urine WBC 0-2 (0-5) Ur Squamous Epith Cells Few (None-Few) Urine Bacteria None (None) Salicylates < 1.0 L (1.0-10) mg/dL Urine Opiates Screen POSITIVE A (Negative) Ur Oxycodone Screen Negative (Negative) Urine Methadone Screen Negative (Negative) Acetaminophen < 10.0 L (10.0-30.0) ug/mL Ur Barbiturates Screen Negative (Negative) U Tricyclic Antidepress Negative (Negative) Ur Phencyclidine Scrn Negative (Negative) Ur Amphetamines Screen Negative (Negative) U Methamphetamines Scrn Negative (Negative) U Benzodiazepines Scrn Negative (Negative) Urine Cocaine Screen Negative (Negative) U Marijuana (THC) Screen Negative (Negative) Ur Drug Screen Comment See Note Ethyl Alcohol 0.33 H* (0.01-0.03) % <Natalya Srivastava MD - Last Filed: 10/12/23 01:50> Lab Results 10/11/23 10/12/23 Range/Units 22:50 00:00 WBC 10.82 (4.50-11.00) K/uL RBC 4.53 (4.30-5.90) m/uL Hgb 14.3 (13.5-17.5) gm/dL Hct 42.6 (37.0-53.0) % MCV 94 (80-100) fL MCH 32 (26-34) pg MCHC 34 (32-36) gm/dL RDW Coeff of Francis 13.2 (11.5-15.5) % Plt Count 248 (140-440) K/uL Neut % (Auto) 74.7 H (42.0-72.0) % Lymph % (Auto) 17.4 L (20-44) % [place] % (Auto) 4.4 (0.0-11.0) % Eos % (Auto) 2.4 (0.0-7.0) % Baso % (Auto) 0.3 (0.0-3.0) % Neut # (Auto) 8.10 H (1.7-7.0) K/uL Lymph # (Auto) 1.90 (0.90-2.90) K/uL [place] # (Auto) 0.50 (0.00-0.90) K/UL Eos # (Auto) 0.26 (0.00-0.50) K/uL Baso # (Auto) 0.03 (0.00-0.30) K/uL Abs Immat Gran (auto) 0.09 (0.00-0.30) K/uL Imm/Tot Granulo (auto) 0.8 % Sodium 141 (135-149) mmol/L Potassium 4.0 (3.6-5.1) mmol/L Chloride 109 (96-114) mmol/L Carbon Dioxide 21 (20-32) mmol/L Anion Gap 11 (7-15) mEq/L BUN 12 (7-30) mg/dL Creatinine 0.8 (0.5-1.5) mg/dL Estimated Creat Clear 71.68 Estimated GFR 97 ml/min Glucose 100 (60-115) mg/dL Calcium 8.4 (8.4-10.6) mg/dL Magnesium 2.1 (1.5-2.6) mg/dL Total Bilirubin 0.2 (0.1-1.5) mg/dL AST 27 (12-35) U/L ALT 19 (4-50) U/L Alkaline Phosphatase 62 (40-150) U/L C-Reactive Protein < 0.5 L (0.5-1.0) mg/dL Total Protein 6.6 (6.0-8.3) g/dL Albumin 4.3 (3.3-5.0) g/dL Urine Color Yellow (Yellow) Urine Appearance Clear (Clear) Urine pH 5.5 (5.0-8.5) Ur Specific [place] 1.015 (1.000-1.030) Urine Protein Negative (Negative) Urine Glucose (UA) Negative (Negative) Urine Ketones Negative (Negative) Urine Blood Negative (Negative) Urine Nitrite Negative (Negative) Urine Bilirubin Negative (Negative) Urine Urobilinogen 0.2 (0.2-1.0) Ur Leukocyte Esterase Negative (Negative) Urine RBC 0-2 (0-2) Urine WBC 0-2 (0-5) Ur Squamous Epith Cells Few (None-Few) Urine Bacteria None (None) Salicylates < 1.0 L (1.0-10) mg/dL Urine Opiates Screen POSITIVE A (Negative) Ur Oxycodone Screen Negative (Negative) Urine Methadone Screen Negative (Negative) Acetaminophen < 10.0 L (10.0-30.0) ug/mL Ur Barbiturates Screen Negative (Negative) U Tricyclic Antidepress Negative (Negative) Ur Phencyclidine Scrn Negative (Negative) Ur Amphetamines Screen Negative (Negative) U Methamphetamines Scrn Negative (Negative) U Benzodiazepines Scrn Negative (Negative) Urine Cocaine Screen Negative (Negative) U Marijuana (THC) Screen Negative (Negative) Ur Drug Screen Comment See Note Ethyl Alcohol 0.33 H* (0.01-0.03) % <Jeronimo Mason MD - Last Filed: 10/12/23 11:24> Imaging Data CT scan - head: Attestation: I have reviewed the pertinent imaging results. <Natalya Srivastava MD - Last Filed: 10/12/23 01:50> My impression: I do not note any skull fracture or subdural hematoma. <Natalya Srivastava MD - Last Filed: 10/12/23 01:50> Radiologist's impression: Brain parenchyma and extra-axial spaces: Mild periventricular white matter hypoattenuation suggestive of chronic microvascular disease. No sign of mass, hemorrhage, or midline shift. No extra-axial fluid collection. Skull base and calvarium: Complete opacification of the left frontal sinus. Mild opacification of the right maxillary sinus. Mastoids are clear. The visualized orbits are grossly unremarkable. No skull fractures. IMPRESSION: No acute intracranial abnormality. No acute fracture or dislocation.. <Natalya Srivastava MD - Last Filed: 10/12/23 01:50> Cervical spine: Attestation: I have reviewed the pertinent imaging results. <Natalya Srivastava MD - Last Filed: 10/12/23 01:50> My impression: I do not note any acute fractures. <Natalya Srivastava MD - Last Filed: 10/12/23 01:50> Radiologist's impression: Vertebrae: Alignment is unremarkable. There are no fractures or suspicious bony lesions. Discs and facet joints: Multilevel spinal degenerative changes. Extraspinal findings: Prevertebral soft tissues, visualized airway, and visualized lungs are unremarkable. IMPRESSION: No acute fracture or dislocation. <Natalya Srivastava MD - Last Filed: 10/12/23 01:50> ECG Data Attestation: I personally reviewed and interpreted this ECG as follows: <Natalya Srivastava MD - Last Filed: 10/12/23 01:50> Discharge Plan Discharge Clinical Impression: Alcohol intoxication Qualifiers: Complication of substance-induced condition: with unspecified complication Qualified Code(s): F10.929 - Alcohol use, unspecified with intoxication, unspecified Fall Qualifiers: Encounter type: initial encounter Qualified Code(s): W19.XXXA - Unspecified fall, initial encounter <Natalya Srivastava MD - Last Filed: 10/12/23 01:50> Patient Disposition: Home, Self-Care <Natalya Srivastava MD - Last Filed: 10/12/23 01:50> Condition: Stable <Natalya Srivastava MD - Last Filed: 10/12/23 01:50> Instructions: Fall Prevention (ED) <Natalya Srivastava MD - Last Filed: 10/12/23 01:50> Additional Instructions: Follow-up with Dr. Mason by phone tomorrow. Research treatment options in the interim. <Natalya Srivastava MD - Last Filed: 10/12/23 01:50> Activity Level: No Restrictions <Natalya Srivastava MD - Last Filed: 10/12/23 01:50> No Restrictions <Jeronimo Mason MD - Last Filed: 10/12/23 11:24> Discharge Diet: Regular <Natalya Srivastava MD - Last Filed: 10/12/23 01:50> Regular <Jeronimo Mason MD - Last Filed: 10/12/23 11:24> Prescriptions: No Action tadalafil [Cialis] 5 mg tablet 5 mg PO QDAY PRN (Reason: sexual activity) Qty: 30 0RF Rx Instructions: administer approximately 30min before sexual activity; do not use more than 1 dose per 24hrs lisinopril-hydrochlorothiazide 20-12.5 mg tablet 1 tab PO QDAY Qty: 90 3RF <Natalya Srivastava MD - Last Filed: 10/12/23 01:50> Follow Up/Referrals: Jeronimo Mason MD [Primary Care Provider] - <Natalya Srivastava MD - Last Filed: 10/12/23 01:50> Stand Alone Forms: Copier How Toealth Info Instructions <Natalya Srivastava MD - Last Filed: 10/12/23 01:50>
[2023-10-11 23:02] LABS: Basophils Absolute Auto 0.03 K/uL (0.00-0.30); Basophils Percent Auto 0.3 % (0.0-3.0); Eosinophils Absolute Auto 0.26 K/uL (0.00-0.50); Eosinophils Percent Auto 2.4 % (0.0-7.0); Hematocrit 42.6 % (37.0-53.0); Hemoglobin* 14.3 gm/dL (13.5-17.5); Immature Granulocytes Abs Auto 0.09 K/uL (0.00-0.30); Immature Granulocytes Pct Auto 0.8 %; Lymphocytes Percent Auto 17.4 % (20-44); Mean Corpuscular HGB Conc 34 gm/dL (32-36); Mean Corpuscular Hemoglobin 32 pg (26-34); Mean Corpuscular Volume 94 fL (80-100); Monocytes Percent Auto 4.4 % (0.0-11.0); Neutrophils Percent Auto 74.7 % (42.0-72.0); Platelet Count* 248 K/uL (140-440); RDW Coefficient of Variation % 13.2 % (11.5-15.5); Red Blood Count 4.53 m/uL (4.30-5.90); Slide Review Reflex No; White Blood Count* 10.82 K/uL (4.50-11.00)
[2023-10-11 23:12] LABS: Albumin* 4.3 g/dL (3.3-5.0); Chloride* 109 mmol/L (96-114)
[2023-10-11 23:13] LABS: Sodium* 141 mmol/L (135-149)
--- OUTSIDE RECORDS SUMMARY | 2023-10-11 23:14 | XMS_ITS | Continuity of Care Document ---
Author Organization [facility] Address [address] [place] [address] Phone Care Team Providers Care Director Of Veterans Affairs Name Role Phone Shilo Howe MD Unavailable [...] [place], [address], [place], [place], [id number] , [place] [phone] [facility] No Information 4 Carleyhumberto Lao. [facility] [place], [address], [address], [id number], [place]. tel:[phone] Office/Outpa tient Visit,Est, Mod [facility], [address], [place], [place], [id number] , [place] [phone] [facility] Arthrodesis status 3 Carley Shilo. [facility] [place], [address] [place] [address], [address], [id number], [place]. tel:[phone] Referring Provider: Tim Cagle, [address], [address]. tel:[phone] [facility], [address], [place], [place], [id number] , [place] tel:[phone] [facility] Encounter for other specified surgical aftercare 2 Carley Ramirezothy. [facility], [address] [place] [address], [address], [id number], [place]. tel:[phone] Referring Provider: Tim Cagle, [address], [address]. tel:[phone] [facility], [address], [place], [id number] , [place] tel:[phone] [facility] Encounter for other specified surgical aftercare - 2 Carley Ramirezothy. [facility] [place], [address], [address], [id number], [place]. tel:[phone] Referring Provider: Tim Cagle, [facility] & [address], [address]. tel:[phone] [facility], [address], [place], [id number] , [place] tel:[phone] [facility] No Information 2 No Information Referring Provider: Tim Cagle, [facility] & [address], [address]. tel:[phone] [facility], [address], [place], [id number] , [place] tel:[phone] [facility] No Information 2 Carley Lao. [facility] [place], [address] [place] [address], [address], [id number], [place]. tel:[phone] Referring Provider: [facility] & [address], [address]. tel:[phone] Office/Outpa tient Visit,Est, [place] [facility], [address], [facility] [place] [id number] , [place] [phone] [facility] Spinal stenosis, lumbar region with neurogenic claudicationS pondylolisthe sis, lumbar region 1 Carley Lao. [facility] [place], [address] [place] [address], [address], [id number], [place]. tel:[phone] Referring Provider: Tim Cagle, [facility] & [address], [address]. tel:[phone] Office/Outpa tient Visit,New, Mod [facility], [address], [place], [id number] , [place] [phone] [facility] Spinal stenosis, lumbar region with neurogenic claudicationS star stenosis, cervical regionSpondyl olisthesis, lumbar region 1 No Information Referring Provider: Jeronimo Mason, [facility] [address] [place] [address], [address]. tel:[phone] Office/Outpa tient Visit,New, Mod [facility], [address], [place], [place], [id number] , [place] tel:[phone] [facility] Spinal stenosis, cervical region 7 Jose Martin Alicia. [facility], [address], [place], [place], [id number], [place]. tel:[phone] Referring Provider: [facility] And [address], [address]. tel:[phone] Family History Family Member Type Diagnosis Age At Onset No Information Payers Payer name Insurance type Covered republican ID Sarah medina(s) [facility] [id number] Medicare [facility] [id number] 1 Social History Type Description Quantity Date [...]
--- OUTSIDE RECORDS SUMMARY | 2023-10-11 23:14 | XMS_ITS | Clinical Summary ---
Author Organization [email or web address] [facility] Address [place], [place] [address] Care Team Providers Care Distillery Manager Name Role Phone Jeronimo Mason MD Primary [...] Comments Blood Pressure 120/77 02/28/2021 8:38 AM PROGRAMS DIRECTOR Pulse 94 02/28/2021 8:38 AM PROGRAMS DIRECTOR Temperature 37.1 ??C (98.8 ??F) 02/28/2021 8:38 AM CS T Respiratory Rate 16 02/28/2021 8:38 AM PROGRAMS DIRECTOR Oxygen Saturation 94% 02/28/2021 8:38 AM PROGRAMS DIRECTOR Inhaled Oxygen Concentration - - Weight 103.9 kg (229 lb) 02/26/2021 7:00 AM PROGRAMS DIRECTOR Height 172.7 cm (5' 8) 02/26/2021 7:00 AM PROGRAMS DIRECTOR Body Mass Index 34.82 02/26/2021 7:00 AM PROGRAMS DIRECTOR Plan of Treatment Health Maintenance Due [...] Completed 12/15/2006 Medical Devices Implanted Type Area Lead Burner Supervisor Device Identifier Shelf Expiration Date Model / Serial / Lot Bebeto Lmbr 50x5.5mm Tsrh 3d Cvd Titnm - [id number] Implanted:Qty: 1 on 02/26/2021 by Shilo Howe MD at [facility] Spine Implants N/A: Spine Medtronic Spine/Ortho [id number] / / Bebeto Lmbr 60x5.5mm Tsrh 3d Cvd Titnm - [id number] Implanted:Qty: 1 on 02/26/2021 by Shilo Howe MD at [facility] Spine Implants N/A: Spine Medtronic Spine/Ortho [id number] / / Dura Neuro 1xin Duragen Plusnon-Sut - [id number] Implanted:Qty: 1 on 02/26/2021 by Shilo Howe MD at [facility] N/A: Spine Integra [employer] Farida 11/09/2023 DP-1011 / / [id number] Set Screw Lmbr Tsrh 3dx - [id number] Implanted:Qty: 5 on 02/26/2021 by Shilo Howe MD at [facility] N/A: Spine Medtronic Spine/Ortho [id number] / / Cnnctr Lmbr Sm Tsrh 3dx Offsettitnm - [id number] Implanted:Qty: 4 on 02/26/2021 by Shilo Howe MD at [facility] N/A: Spine Medtronic Spine/Ortho [id number] / / Cnnctr Lmbr Ts 3dx Offsettitnm - [id number] Implanted:Qty: 1 on 02/26/2021 by Shilo Howe MD at [facility] N/A: Spine Medtronic Spine/Ortho [id number] / / Screw Lmbr Post 6.5x45mm Tsrh 3dx Og Thin Va - [id number] Implanted:Qty: 5 on 02/26/2021 by Shilo Howe MD at [facility] N/A: Spine Medtronic Spine/Ortho [id number] / / Plate Lmbr 5.5x1.125in Crosslink Low Profile Titnm - [id number] Implanted:Qty: 1 on 02/26/2021 by Shilo Howe MD at [facility] N/A: Spine Medtronic Spine/Ortho [id number] / / Advance Directives * Full Code (Latest Code Status on File) Date Activated Date Inactivated Comments 02/26/2021 2:08 PM 02/28/2021 5:51 PM Question Answer Comments Code Status Discussion: Reviewed Preferences Care Teams Distillery Manager Relationship Specialty Start Date End Date Jeronimo Mason MD [address] [place] [address] PCP - General Internal Medicine 02/10/19
[2023-10-11 23:15] LABS: Bilirubin Total* 0.2 mg/dL (0.1-1.5); Creatinine* 0.8 mg/dL (0.5-1.5); Est. Creatinine Clearance* 71.68; Estimated Glomerular Filt Rate 97 ml/min
[2023-10-11 23:16] LABS: Alanine Aminotransferase* 19 U/L (4-50); Alkaline Phosphatase* 62 U/L (40-150); Anion Gap 11 mEq/L (7-15); Aspartate Amino Transferase* 27 U/L (12-35); Blood Urea Nitrogen* 12 mg/dL (7-30); Calcium* 8.4 mg/dL (8.4-10.6); Carbon Dioxide* 21 mmol/L (20-32); Glucose* 100 mg/dL (60-115); Total Protein* 6.6 g/dL (6.0-8.3)
[2023-10-11 23:17] LABS: Magnesium* 2.1 mg/dL (1.5-2.6)
[2023-10-11 23:21] LABS: Acetaminophen* < 10.0 ug/mL (10.0-30.0); C Reactive Protein* < 0.5 mg/dL (0.5-1.0); Salicylate* < 1.0 mg/dL (1.0-10)
[2023-10-11 23:25] LABS: Ethanol* 0.33 % (0.01-0.03)
[2023-10-12] VITALS: PULSE 90; O2SAT 97
[2023-10-12 00:03] LABS: Appearance Urine Clear (Clear); Bilirubin Urine Negative (Negative); Blood Urine Negative (Negative); Color Urine Yellow (Yellow); Glucose Urine Negative (Negative); Ketones Urine Negative (Negative); Leukocyte Esterase Urine Negative (Negative); Nitrite Urine Negative (Negative); Protein Urine Negative (Negative); Specific Gravity Urine 1.015 (1.000-1.030); Urobilinogen Urine 0.2 (0.2-1.0); pH Urine 5.5 (5.0-8.5)
[2023-10-12 00:05] VITALS: PULSE 90; O2SAT 95
[2023-10-12 00:13] LABS: RBC Urine 0-2 (0-2); Squamous Epithelial Cell Urine Few (None-Few); WBC Urine 0-2 (0-5)
[2023-10-12 00:14] LABS: Amphetamine Screen Urine Negative (Negative); Barbiturate Screen Urine Negative (Negative); Benzodiazepines Screen Urine Negative (Negative); Cannabinoid Screen Urine Negative (Negative); Cocaine Screen Urine Negative (Negative); Methadone Screen Urine Negative (Negative); Methamphetamines Screen Urine Negative (Negative); Opiate Screen Urine POSITIVE (Negative); Oxycodone Screen Urine Negative (Negative); Phencyclidine Screen Urine Negative (Negative); Tricyclic Antidepressant Urine Negative (Negative)
[2023-10-12 00:15] VITALS: PULSE 89; O2SAT 94
[2023-10-12 00:30] VITALS: PULSE 87; O2SAT 93
[2023-10-12] MEDS: 0.9 % SODIUM CHLORIDE 1000 ml 1,000 ML IV (01:40)
[2023-10-12 07:25] VITALS: BP 116/83; PULSE 94; RESP 16; O2SAT 96
== END 2023-10-12 11:57 | disposition home or self-care (01) ==
PROVIDERS: Emergency Provider Family Medicine; PCP Internal Medicine
DX: F10.929 Alcohol use, unspecified with intoxication, unspecified (principal); R41.82 Altered mental status, unspecified; W19.XXXA Unspecified fall, initial encounter
CPT/HCPCS: 36415; 70450; 72125; 80053; 80143; 80179; 80306; 81001; 82077; 83735; 85025; 86140; 93005; 96365; 99284; 99285; 99291; G0390; J3411; J7030

== ENCOUNTER 2024-04-22 09:10 | Outpatient (CLI) | payer MEDICARE, BC, SELFPAY | END 2024-04-22 09:11 | disposition home or self-care (01) | PROVIDERS: PCP Internal Medicine; Visit Provider Internal Medicine | DX: E78.5 Hyperlipidemia, unspecified (principal); Z12.5 Encounter for screening for malignant neoplasm of prostate | CPT/HCPCS: 80053; 80061; G0103 ==

== ENCOUNTER 2024-05-05 08:57 | Outpatient (CLI) | payer MEDICARE, BC, SELFPAY ==
--- NOTE | 2024-05-05 09:15 | CRLHL7_ITS ---
For Patients: As a result of the Century Cures Act, medical imaging exams and procedure reports are released immediately into your electronic medical record. You may view this report before your referring provider. If you have questions, please contact your health care provider. INDICATION: Radiculopathy. COMPARISON: 10/11/2023 and 12/06/2020. TECHNIQUE: Sagittal T1, T2, and STIR sequences. Axial T2/gradient sequences. FINDINGS: Normal vertebral body facet alignment. No fractures. No vertebral body loss of height. No spondylolisthesis. No ligamentous injury. Normal marrow signal. No suspicious osseous lesions. Normal cord signal. No intradural mass or lesion. C1-2: No spinal canal narrowing. C2-3: No spinal canal or neural foraminal narrowing. C3-4: Disk degeneration and posterior disc bulge. No narrowing of the spinal canal. Uncovertebral joint hypertrophy results in moderate narrowing of the left neural foramen. No narrowing of the right neural foramen. C4-5: Disc degeneration and posterior disc bulging disc osteophyte complex. Mild narrowing of spinal canal. Moderate severe right and mild left neural foraminal narrowing. Potential impingement of the right C5 nerve root. C5-6: Disc degeneration and broad-based disc osteophyte complex. Mild narrowing of spinal canal. Moderate severe narrowing of bilateral foramina. Potential impingement of the C6 nerve roots. C6-7: Disc generation posted this bulge. No narrowing of spinal canal. Mild narrowing of the left neural foramen. No narrowing of the right neural foramen. C7-T1: No spinal canal or neural foraminal narrowing. No splenic no neural foraminal narrowing in the visualized upper thoracic spine. IMPRESSION: 1. Normal alignment. No fractures. 2. Normal cord signal. 3. At C3-4, moderate narrowing of the left neural foramen. 4. At C4-5, mild narrowing of the spinal canal. Moderate to severe narrowing of the right neuroforamen. Potential impingement of the right C5 nerve root. 5. At C5-6, broad-based disc osteophyte complex. Mild narrowing of the spinal canal. Moderate to severe narrowing of the bilateral neural foramina. Potential impingement of the C6 nerve roots. 6. No spinal canal or neural foraminal narrowing at all levels Dictated by Stanislav Arreguin MD @ 05/05/2024 3:16:23 PM (Electronically Signed)
== END 2024-05-05 08:58 | disposition home or self-care (01) ==
LOC: MRI 08:58
PROVIDERS: PCP Internal Medicine; Visit Provider Internal Medicine
DX: M54.12 Radiculopathy, cervical region (principal); M50.21 Other cervical disc displacement, high cervical region; M50.221 Other cervical disc displacement at C4-C5 level; M50.222 Other cervical disc displacement at C5-C6 level
CPT/HCPCS: 72141

== ENCOUNTER 2024-06-03 10:26 | Outpatient (CLI) | payer MEDICARE, BC, SELFPAY ==
--- NOTE | 2024-06-03 10:45 | CRLHL7_ITS ---
For Patients: As a result of the Century Cures Act, medical imaging exams and procedure reports are released immediately into your electronic medical record. You may view this report before your referring provider. If you have questions, please contact your health care provider. INDICATION: Swelling right testicle COMPARISON: 07/08/2013 TECHNIQUE: Wood scale imaging was performed of the scrotum. In addition color Doppler and spectral Doppler analysis was performed of the testes. FINDINGS: On arterial and venous blood flow on color Doppler and spectral Doppler analysis, there is increased blood flow within the left testicle relative to the right testicle. The testes have uniform echogenicity with no evidence of a suspicious mass or area of inflammation. Incidental rete testes on the right. The right testis measures 4.4 x 2.6 x 3.1 cm in size and the left testis measures 4.9 x 2.3 x 2.7 cm. Incidental appendix epididymis on the left measuring 5 x 3 x 6 millimeters. Also incidental extratesticular calcification left hemiscrotum measuring 2 x 2 x 3 millimeters. Small right hydrocele. No varicocele. Complex right epididymal cysts are present measuring 4.2 x 3.3 x 4.1 cm and 5.1 x 3.7 x 5.8 cm. IMPRESSION: Large right epididymal cysts measuring 4.2 cm and 5.8 cm. Possible left orchitis. Dictated by Jimmy Moreira MD @ 06/03/2024 1:13:40 PM (Electronically Signed)
== END 2024-06-03 10:27 | disposition home or self-care (01) ==
LOC: US 10:28
PROVIDERS: PCP Internal Medicine; Visit Provider Internal Medicine
DX: N50.89 Other specified disorders of the male genital organs (principal); L72.0 Epidermal cyst
CPT/HCPCS: 76870; 93976

== ENCOUNTER 2024-08-24 15:15 | Outpatient (RCR) | payer MEDICARE, BC, SELFPAY | END 2024-10-21 17:15 | disposition home or self-care (01) | PROVIDERS: PCP Internal Medicine; Visit Provider Physician Assistant | DX: M47.12 Other spondylosis with myelopathy, cervical region (principal); Z51.89 Encounter for other specified aftercare | CPT/HCPCS: 97110; 97140; 97161 ==